=== PATIENT | female | born 1970 | race Caucasian/White ===

== ENCOUNTER 2017-06-23 08:06 | Emergency (ER) | payer OTHER ==
[~2017-06-23] VITALS: Ht 167.6 cm; Wt 86.2 kg
[~2017-06-23 08:06] MED LIST: BACTRIM DS 8001 TA1 PO; CEPHALEXIN500 M1 PO; DAYPRO600 M1 PO; KEFLEX500 MG PO; MOTRIN800 MG PO; NAPROSYN500 MG PO; ULTRAM50 MG PO; VICODIN 5/500 505 MG PO
[2017-06-23 08:11] VITALS: BP 130/73
== END 2017-06-23 09:14 | disposition home or self-care (01) ==
LOC: ED 08:06
DX: S05.01XA Injury of conjunctiva and corneal abrasion without foreign body, right eye, initial encounter (principal); F17.200 Nicotine dependence, unspecified, uncomplicated; X58.XXXA Exposure to other specified factors, initial encounter; Y93.89 Activity, other specified; Y92.89 Other specified places as the place of occurrence of the external cause; Y99.8 Other external cause status

== ENCOUNTER → 2018-07-07 | Outpatient (CLI) | payer OTHER | END | disposition home or self-care (01) | LOC: US 16:33 | DX: E04.2 Nontoxic multinodular goiter (principal); F41.9 Anxiety disorder, unspecified ==

== ENCOUNTER → 2018-07-21 | Outpatient (CLI) | payer OTHER | END | disposition home or self-care (01) | LOC: CARD 07:30 | DX: R01.1 Cardiac murmur, unspecified (principal) ==

== ENCOUNTER → 2018-12-24 | Outpatient (CLI) | payer OTHER | END | disposition home or self-care (01) | LOC: LAB 15:52 | DX: E04.1 Nontoxic single thyroid nodule (principal) ==

== ENCOUNTER → 2019-01-10 | Outpatient (CLI) | payer OTHER | END | disposition home or self-care (01) | LOC: MRI 12:50 | DX: S46.911D Strain of unspecified muscle, fascia and tendon at shoulder and upper arm level, right arm, subsequent encounter (principal); M75.81 Other shoulder lesions, right shoulder; M24.011 Loose body in right shoulder; M19.011 Primary osteoarthritis, right shoulder; X58.XXXD Exposure to other specified factors, subsequent encounter ==

== ENCOUNTER → 2019-02-08 | Outpatient (CLI) | payer OTHER ==
[2019-02-08 16:23] LABS: FREE T4 1.02 ng/dl (0.76-1.46)
[2019-02-08 16:32] LABS: THYROID STIM HORMONE (HS) 7.52 uIU/ml (0.358-4.75)
== END | disposition home or self-care (01) ==
LOC: LAB 15:15
PROVIDERS: Otolaryngology Plastic Surgery within the Head & Neck
DX: E21.0 Primary hyperparathyroidism (principal); E89.0 Postprocedural hypothyroidism

== ENCOUNTER → 2019-05-17 | Outpatient (CLI) | payer OTHER ==
[2019-05-17 11:45] LABS: FREE T4 1.11 ng/dl (0.76-1.46)
[2019-05-17 11:49] LABS: THYROID STIM HORMONE (HS) 1.88 uIU/ml (0.358-4.75)
== END | disposition home or self-care (01) ==
LOC: LAB 10:39
PROVIDERS: Otolaryngology Plastic Surgery within the Head & Neck
DX: E04.1 Nontoxic single thyroid nodule (principal); E89.0 Postprocedural hypothyroidism

== ENCOUNTER → 2020-03-14 | Outpatient (CLI) | payer OTHER ==
[2020-03-14 11:28] LABS: BASO % 0.4 % (0.0-1.0); EOS # 0.1 10*3/uL (0.0-0.4); EOS % 0.9 % (1.0-4.0); LYMPH # 1.7 10*3/uL (1.3-4.4); LYMPH % 16.7 % (27.0-41.0); MEAN CELL VOLUME 96.6 fl (81.0-99.0); MEAN CORPUSCULAR HGB 31.5 pg (27.0-31.0); MEAN CORPUSCULAR HGB CONC 32.6 g/dl (33.0-37.0); MEAN PLATELET VOLUME 10.9 fl (9.6-12.3); MONO # 0.7 10*3/uL (0.1-1.0); MONO % 6.6 % (3.0-9.0); NEUT # 7.9 10*3/uL (2.3-7.9); NEUT % 75.1 % (47.0-73.0); PLATELET COUNT AUTOMATED 207 10*3/uL (130-400); RED BLOOD COUNT 4.76 10*6/uL (4.10-5.10); RED CELL DISTRI WIDTH 13.3 % (0-14.5); WHITE BLOOD COUNT 10.5 10*3/uL (4.8-10.8)
[2020-03-14 11:37] LABS: ACT PARTIAL THROMBO TIME 25.9 SECONDS (20.0-32.1); INTERNATIONAL NORM RATIO 0.9 (2.0-3.5)
[2020-03-14 11:43] LABS: BUN 15 mg/dl (7-24); CHLORIDE 109 mmol/L (98-107); CREATININE 0.93 mg/dL (0.55-1.02); SODIUM 142 mmol/L (136-145)
== END | disposition home or self-care (01) ==
LOC: LAB 10:27
PROVIDERS: Otolaryngology Plastic Surgery within the Head & Neck
DX: R23.8 Other skin changes (principal)

== ENCOUNTER 2020-05-04 19:06 | Emergency (ER) | payer SELFPAY ==
[~2020-05-04] VITALS: Wt 91.2 kg
[2020-05-04 19:15] VITALS: BP 144/81
[2020-05-04] MEDS ORDERED: CIPROFLOXACIN OS (20:01)
== END 2020-05-04 20:09 | disposition home or self-care (01) ==
LOC: ED 19:06
DX: H10.9 Unspecified conjunctivitis (principal); J45.909 Unspecified asthma, uncomplicated; Z87.891 Personal history of nicotine dependence

== ENCOUNTER → 2020-11-26 | Outpatient (CLI) | payer SELFPAY ==
[~2020-11-26] MED LIST changes: +CIPROFLOXACIN OS
== END | disposition home or self-care (01) ==
LOC: LAB 15:55
PROVIDERS: ATTEND Otolaryngology Plastic Surgery within the Head & Neck
DX: E04.1 Nontoxic single thyroid nodule (principal)

== ENCOUNTER 2021-11-05 15:19 | Emergency (ER) | payer SELFPAY ==
[2021-11-05 15:24] VITALS: BP 134/78
== END 2021-11-05 17:40 | disposition home or self-care (01) ==
LOC: ED 15:19
DX: S90.31XA Contusion of right foot, initial encounter (principal); W20.8XXA Other cause of strike by thrown, projected or falling object, initial encounter; Y93.89 Activity, other specified; Y92.89 Other specified places as the place of occurrence of the external cause; Y99.8 Other external cause status

== ENCOUNTER 2022-03-22 09:54 | Emergency (ER) | payer SELFPAY ==
[~2022-03-22] VITALS: Ht 167.6 cm; Wt 65.8 kg
[2022-03-22 10:05] VITALS: BP 137/66
[2022-03-22] MEDS ORDERED: SEPTDS PO (10:36)
[2022-03-22] MEDS ORDERED: TYLENOL325 M1 PO (10:36)
[2022-03-22] MEDS ORDERED: NAPROXEN250 MG PO (10:36)
== END 2022-03-22 10:41 | disposition home or self-care (01) ==
LOC: ED 09:54
DX: L08.9 Local infection of the skin and subcutaneous tissue, unspecified (principal); Z98.890 Other specified postprocedural states

== ENCOUNTER 2022-06-19 13:43 | Emergency (ER) | payer SELFPAY ==
[~2022-06-19] VITALS: Wt 65.8 kg
[~2022-06-19 13:43] MED LIST changes: +NAPROXEN250 MG PO; +SEPTDS PO; +TYLENOL325 M1 PO
[2022-06-19 14:01] VITALS: BP 135/80
[2022-06-19] MEDS ORDERED: PREDNISONE20 M1 PO (17:05)
[2022-06-19] MEDS ORDERED: PROVENTIL HFA6.7 GM INH (17:05)
[2022-06-19] MEDS ORDERED: IBUPROFEN600 MG PO (18:40)
== END 2022-06-19 19:00 | disposition home or self-care (01) ==
LOC: ED 13:43
DX: S93.601A Unspecified sprain of right foot, initial encounter (principal); Z98.890 Other specified postprocedural states; W18.40XA Slipping, tripping and stumbling without falling, unspecified, initial encounter; Y93.89 Activity, other specified; Y92.89 Other specified places as the place of occurrence of the external cause; Y99.8 Other external cause status

== ENCOUNTER 2023-11-16 20:42 | Emergency (ER) | payer SELFPAY ==
[~2023-11-16] VITALS: Ht 167.6 cm; Wt 77.1 kg
[~2023-11-16 20:42] MED LIST changes: +IBUPROFEN600 MG PO; +PREDNISONE20 M1 PO; +PROVENTIL HFA6.7 GM INH
[2023-11-16 22:08] VITALS: BP 130/66
== END 2023-11-16 23:09 | disposition home or self-care (01) ==
LOC: ED 20:42
DX: S62.604A Fracture of unspecified phalanx of right ring finger, initial encounter for closed fracture (principal); S93.402A Sprain of unspecified ligament of left ankle, initial encounter; J45.909 Unspecified asthma, uncomplicated; Z98.890 Other specified postprocedural states; W11.XXXA Fall on and from ladder, initial encounter; Y93.89 Activity, other specified; Y92.89 Other specified places as the place of occurrence of the external cause; Y99.8 Other external cause status